=== PATIENT | male | born 1965 | race American Indian/Alaskan Native ===

== ENCOUNTER 2018-11-25 21:30 | Emergency (ER) | payer OTHER ==
--- NOTE | 2018-11-25 21:43 | Emergency Department Report ---
Blank Doc - Documentation Documentation: This is a 53-year-old male that presents with right leg tingling and numbness sensation. Patient stated started with lumbar spine and radiates to lower ext. Denies any calf pain. This initial assessment/diagnostic orders/clinical plan/treatment(s) is/are subject to change based on patient's health status, clinical progression and re- assessment by fellow clinical providers in the ED. Further treatment and workup at subsequent clinical providers discretion. Patient/guardians urged not to elope from the ED as their condition may be serious if not clinically assessed and managed. Initial orders include: 1- Patient sent to [facility] for further evaluation and treatment 2- lumbar xray
[2018-11-25 21:45] VITALS: BP 143/71
--- NOTE | 2018-11-25 22:53 | XRay Report ---
PROCEDURE: XR SPINE LUMBOSACRAL 2-3V TECHNIQUE: Frontal and lateral views lumbar spine HISTORY: lumbar spine pain COMPARISONS: None FINDINGS: There is grade 1 anterolisthesis of L4 on L5 that appears to be secondary to degenerative facet simms e at this level. The vertebral heights are maintained. There is loss of height of the L4-L5 and L5-S1 discs. The paraspinous soft tissues are unremarkable. IMPRESSION: 1. Spondylitic change lower lumbar spine with grade 1 anterolisthesis L4 on L5 and degenerative disc change L4-L5 and L5-S1 levels.. MRI lumbar spine may be helpful for further evaluation. This document is electronically signed by Marlen Lu MD., November 25 2018 10:51:38 PM ET
== END 2018-11-26 02:30 | disposition left against medical advice (07) ==
LOC: ED 21:30
DX: R20.0 Anesthesia of skin (principal); Z53.21 Procedure and treatment not carried out due to patient leaving prior to being seen by health care provider
CPT/HCPCS: 72100

== ENCOUNTER 2018-11-30 09:06 | Emergency (ER) | payer OTHER ==
[2018-11-30 09:13] VITALS: BP 114/72
--- NOTE | 2018-11-30 09:25 | Emergency Department Report ---
ED Dysuria HPI - HPI Chief Complaint: Abdominal Pain Stated Complaint: STOMACH CRAMPS Time Seen by Provider: 11/30/18 09:25 Duration: 2 Days Severity: Mild Symptoms: Dysuria: Yes, Frequency: No, Suprapubic Pain: No, Flank Pain: No, Fever: No, Hematuria: No, Abdominal Pain: No, Previous UTI's: No Other History: Patient is a 53-year-old male comes to the ER today with his partner for complaints of dysuria. He states that his partner was recently diagnosed with trich. He is here for treatment for his STI. Pt denies n/v/d or abd pain. pmh. none. psh. hand. rx. none ED Review of Systems ROS: Stated complaint: STOMACH CRAMPS Other details as noted in HPI Comment: All other systems reviewed and negative Constitutional: denies: chills Eyes: denies: eye pain Respiratory: denies: cough Cardiovascular: denies: dyspnea on exertion Endocrine: denies: intolerance to cold Gastrointestinal: denies: nausea Genitourinary: as per HPI, dysuria Musculoskeletal: denies: back pain Skin: denies: rash Neurological: denies: weakness Psychiatric: denies: anxiety Hematological/Lymphatic: denies: easy bleeding ED Past Medical Hx - Past Medical History Previous Medical History?: No Additional medical history: siatica - Surgical History Past Surgical History?: Yes Additional Surgical History: right hand surgery - Family History Family history: no significant - Social History Smoking Status: Current Every Day Smoker Substance Use Type: None - Medications Home Medications: Home Medications Medication Instructions Recorded Confirmed Last Taken Type Azithromycin [Zithromax TAB] 1,000 mg PO ONCE #2 tablet 11/30/18 Unknown Rx metroNIDAZOLE [Flagyl] 500 mg PO ONCE #4 tab 11/30/18 Unknown Rx Dysuria Exam - Exam General: Vital signs noted. No distress. Alert and acting appropriately. Exam: Yes Moist Mucous Membranes, No CVA Tenderness, No Abdominal Tenderness, No Rigidity or Guarding ED Course Vital Signs 11/30/18 09:10 Temperature 98.0 F Pulse Rate 73 Respiratory 16 Rate Blood Pressure 114/72 O2 Sat by Pulse 99 Oximetry ED Medical Decision Making - Medical Decision Making ua and gc pending will empirically treat given partner having STI and symptoms rocephin IM here in ED and flagyl and azithrom Rx provided dc home with discharge plan of care educated pt on plan of care and need to take his medications Vital Signs 11/30/18 11/30/18 09:10 09:23 Temperature 98.0 F Pulse Rate 73 Respiratory 16 16 Rate Blood Pressure 114/72 O2 Sat by Pulse 99 Oximetry Critical care attestation.: If time is entered above; I have spent that time in minutes in the direct care of this critically ill patient, excluding procedure time. ED Disposition Clinical Impression: STI (sexually transmitted infection) Disposition: TO HOME OR SELFCARE Is pt being admited?: No Does the pt Need Aspirin: No Condition: Stable Instructions: Sexually Transmitted Diseases (ED), Safe Sex (ED) Prescriptions: metroNIDAZOLE [Flagyl] 500 mg PO ONCE #4 tab Azithromycin [Zithromax TAB] 1,000 mg PO ONCE #2 tablet Referrals: CARLEE MCINTOSH MD [Primary Care Provider] - 3-5 Days Time of Disposition: 09:29
[2018-11-30] MEDS ORDERED: XYLOCAINE 1% MPF 5 mL INFILTRATI ONE (09:31)
[2018-11-30] MEDS ORDERED: ROCEPHIN IM ONE (09:31)
[2018-11-30 10:23] LABS: Bilirubin,Urine NEG (Negative); Blood,Urine NEG (Negative); Color,Urine Amber (Yellow); Mucus,Urine 3+ /HPF
== END 2018-11-30 09:57 | disposition home or self-care (01) ==
LOC: ED 09:06
DX: A64 Unspecified sexually transmitted disease (principal); F17.200 Nicotine dependence, unspecified, uncomplicated
CPT/HCPCS: 81001; 87591; 96372; 99283; J0696

== ENCOUNTER 2019-03-11 12:43 | Emergency (ER) | payer OTHER ==
[2019-03-11 13:02] VITALS: BP 132/75
--- NOTE | 2019-03-11 13:03 | Event Note ---
ED Screening Note ED Screening Note: pt states that he had dizziness and light-headedness that began earlier today states it felt like the room was spinning worse with head movements and bending over states it occurred while at work and states it was hot + left buddhism CASH no vision changes no numbness or unilateral weakness PMHx HTN he states he does not take his BP medicine +tobacco non drinker no drug use This initial assessment/diagnostic orders/clinical plan/treatment(s) is/are subject to change based on patients health status, clinical progression and re- assessment by fellow clinical providers in the ED. Further treatment and workup at subsequent clinical providers discretion. Patient/guardian urged not to elope from the ED as their condition may be serious if not clinically assessed and managed. Initial orders include: labs
[2019-03-11 13:49] LABS: Basophils # (Auto) 0.1 K/mm3 (0.0-0.1); Eosinophils # (Auto) 0.1 K/mm3 (0.0-0.4); Eosinophils % (Auto) 0.9 % (0.0-4.3); Hematocrit 45.2 % (35.5-45.6); Hemoglobin 15.4 gm/dl (11.8-15.2); Lymphocytes # (Auto) 2.7 K/mm3 (1.2-5.4); Lymphocytes % (Auto) 26.8 % (13.4-35.0); Mean Corpuscular HGB Conc 34 % (32-34); Mean Corpuscular Volume 93 fl (84-94); Monocytes # (Auto) 0.7 K/mm3 (0.0-0.8); Monocytes % (Auto) 7.4 % (0.0-7.3); Platelet Count 141 K/mm3 (140-440); Red Blood Count 4.88 M/mm3 (3.65-5.03); Red Cell Distribution Width 13.7 % (13.2-15.2)
[2019-03-11] MEDS ORDERED: ANTIVERT PO ONE (14:07)
--- NOTE | 2019-03-11 14:19 | Cat Scan Report ---
CT HEAD WITHOUT CONTRAST INDICATION : dizziness. Headache and blurry vision for one day. TECHNIQUE: Axial imaging performed from the skull apex through the skull base without the use of con trast. All CT scans at this location are performed using CT dose reduction for ALARA by means of aut omated exposure control. COMPARISON: None FINDINGS: Parenchyma: No acute intracranial hemorrhage or parenchymal abnormality. Ventricles: Ventricles are normal in size and appear symmetric. Soft tissues: Soft tissues including the orbits appear normal. Bones: No acute osseous abnormality. Sinuses: Sinuses and mastoid air cells are clear. IMPRESSION: No acute abnormality. Signer Name: Apollo Bueno Jr, MD Signed: 03/11/2019 2:14 PM Workstation Name: [id number]
[2019-03-11 14:21] LABS: Alanine Aminotransferase 12 units/L (7-56); Albumin 4.2 g/dL (3.9-5); BUN/Creatinine Ratio 9; Blood Urea Nitrogen 9 mg/dL (9-20); Calcium 9.4 mg/dL (8.4-10.2); Hemolysis Index 75
--- NOTE | 2019-03-11 14:26 | Emergency Department Report ---
ED General Adult HPI - General Chief complaint: High BP Stated complaint: BLOOD PRESSURE HIGH Time Seen by Provider: 03/11/19 13:00 Source: patient Mode of arrival: Ambulatory Limitations: No Limitations - History of Present Illness Initial comments: THE patient presents to the emergency department with a chief complaint of dizziness. Patient states that his dizziness started yesterday and describes it as the room is spinning. Patient does endorse recently having a head cold. Patient not a headache, shortness of breath, chest pain, weakness, blurred vision, slurred speech. -: Sudden Severity scale (0 -10): 0 Improves with: rest Worsens with: movement Associated Symptoms: denies other symptoms Treatments Prior to Arrival: none - Related Data Previous Rx's Medication Instructions Recorded Last Taken Type Azithromycin [Zithromax TAB] 1,000 mg PO ONCE #2 tablet 11/30/18 Unknown Rx metroNIDAZOLE [Flagyl] 500 mg PO ONCE #4 tab 11/30/18 Unknown Rx Meclizine [Antivert] 25 mg PO TID PRN #30 tablet 03/11/19 Unknown Rx Allergies Allergy/AdvReac Type Severity Reaction Status Date / Time ibuprofen AdvReac Vomiting Verified 03/11/19 12:44 ED Review of Systems ROS: Stated complaint: BLOOD PRESSURE HIGH Other details as noted in HPI Comment: All other systems reviewed and negative Constitutional: denies: chills, fever Eyes: denies: eye pain, eye discharge, vision change ENT: denies: ear pain, throat pain Respiratory: denies: cough, shortness of breath, wheezing Cardiovascular: denies: chest pain, palpitations Endocrine: no symptoms reported Gastrointestinal: denies: abdominal pain, nausea, diarrhea Genitourinary: denies: urgency, dysuria Musculoskeletal: denies: back pain, joint swelling, arthralgia Skin: denies: rash, lesions Neurological: denies: headache, weakness, paresthesias Psychiatric: denies: anxiety, depression Hematological/Lymphatic: denies: easy bleeding, easy bruising ED Past Medical Hx - Past Medical History Previous Medical History?: Yes Hx Hypertension: Yes Additional medical history: siatica - Surgical History Past Surgical History?: Yes Additional Surgical History: right hand surgery - Social History Smoking Status: Current Every Day Smoker Substance Use Type: None - Medications Home Medications: Home Medications Medication Instructions Recorded Confirmed Last Taken Type Azithromycin [Zithromax TAB] 1,000 mg PO ONCE #2 tablet 11/30/18 Unknown Rx metroNIDAZOLE [Flagyl] 500 mg PO ONCE #4 tab 11/30/18 Unknown Rx Meclizine [Antivert] 25 mg PO TID PRN #30 tablet 03/11/19 Unknown Rx ED Physical Exam - General Limitations: No Limitations General appearance: alert, in no apparent distress - Head Head exam: Present: atraumatic, normocephalic - Eye Eye exam: Present: normal appearance, PERRL, EOMI - ENT ENT exam: Present: mucous membranes moist - Neck Neck exam: Present: normal inspection - Respiratory Respiratory exam: Present: normal lung sounds bilaterally. Absent: respiratory distress - Cardiovascular Cardiovascular Exam: Present: regular rate, normal rhythm. Absent: systolic murmur, diastolic murmur, rubs, gallop - GI/Abdominal GI/Abdominal exam: Present: soft, normal bowel sounds. Absent: distended, tenderness - Rectal Rectal exam: Present: deferred - Extremities Exam Extremities exam: Present: normal inspection - Back Exam Back exam: Present: normal inspection - Neurological Exam Neurological exam: Present: alert, oriented X3, CN II-XII intact, other (symptoms retreated around the head and eye movement ). Absent: motor sensory deficit - Psychiatric Psychiatric exam: Present: normal affect, normal mood - Skin Skin exam: Present: warm, dry, intact, normal color. Absent: rash ED Course Vital Signs 03/11/19 13:00 Temperature 98.6 F Pulse Rate 63 Respiratory 16 Rate Blood Pressure 132/75 [Right] O2 Sat by Pulse 97 Oximetry ED Medical Decision Making - Lab Data Result diagrams: 03/11/19 13:35 03/11/19 13:35 Lab Results 03/11/19 03/11/19 Range/Units 13:35 13:35 WBC 10.1 (4.5-11.0) K/mm3 RBC 4.88 (3.65-5.03) M/mm3 Hgb 15.4 H (11.8-15.2) gm/dl Hct 45.2 (35.5-45.6) % MCV 93 (84-94) fl MCH 32 (28-32) pg MCHC 34 (32-34) % RDW 13.7 (13.2-15.2) % Plt Count 141 (140-440) K/mm3 Lymph % (Auto) 26.8 (13.4-35.0) % [place] % (Auto) 7.4 H (0.0-7.3) % Eos % (Auto) 0.9 (0.0-4.3) % Baso % (Auto) 1.0 (0.0-1.8) % Lymph # 2.7 (1.2-5.4) K/mm3 [place] # 0.7 (0.0-0.8) K/mm3 Eos # 0.1 (0.0-0.4) K/mm3 Baso # 0.1 (0.0-0.1) K/mm3 Seg Neutrophils % 63.9 (40.0-70.0) % Seg Neutrophils # 6.4 (1.8-7.7) K/mm3 Sodium 141 (137-145) mmol/L Potassium 4.5 (3.6-5.0) mmol/L Chloride 104.9 (98-107) mmol/L Carbon Dioxide 27 (22-30) mmol/L Anion Gap 14 mmol/L BUN 9 (9-20) mg/dL Creatinine 1.0 (0.8-1.5) mg/dL Estimated GFR > 60 ml/min BUN/Creatinine Ratio 9 % Glucose 103 H (75-100) mg/dL Calcium 9.4 (8.4-10.2) mg/dL Phosphorus 3.30 (2.5-4.5) mg/dL Magnesium 2.30 (1.7-2.3) mg/dL Total Bilirubin 0.50 (0.1-1.2) mg/dL AST 32 (5-40) units/L ALT 12 (7-56) units/L Alkaline Phosphatase 101 (35-129) units/L Total Protein 6.7 (6.3-8.2) g/dL Albumin 4.2 (3.9-5) g/dL Albumin/Globulin Ratio 1.7 % - Radiology Data Radiology results: report reviewed - Medical Decision Making symptoms improved with medication Discussed results with patient Critical care attestation.: If time is entered above; I have spent that time in minutes in the direct care of this critically ill patient, excluding procedure time. ED Disposition Clinical Impression: Vertigo Disposition: DC-01 TO HOME OR SELFCARE Is pt being admited?: No Does the pt Need Aspirin: No Condition: Stable Instructions: Vertigo (ED) Additional Instructions: return if worse Referrals: CARLEE MCINTOSH MD [Primary Care Provider] - 3-5 Days [facility] [Provider Group] - 3-5 Days [facility] [Provider Group] - 3-5 Days [facility] [Provider Group] - 3-5 Days [facility] [Outside] - 3-5 Days Time of Disposition: 15:07
== END 2019-03-11 15:14 | disposition home or self-care (01) ==
LOC: ED 12:43
DX: R42 Dizziness and giddiness (principal); I10 Essential (primary) hypertension; F17.200 Nicotine dependence, unspecified, uncomplicated; Z98.890 Other specified postprocedural states; Z88.5 Allergy status to narcotic agent
CPT/HCPCS: 36415; 70450; 80053; 83735; 84100; 85025; 93005; 93010; 99284

== ENCOUNTER 2019-10-07 08:21 | Emergency (ER) | payer SELFPAY ==
[2019-10-07] MEDS ORDERED: ASPIRIN 325 MG TAB PO ONE (08:30)
[2019-10-07 08:54] LABS: Basophils # (Auto) 0.1 K/mm3 (0.0-0.1); Basophils % (Auto) 0.7 % (0.0-1.8); Eosinophils # (Auto) 0.1 K/mm3 (0.0-0.4); Eosinophils % (Auto) 0.5 % (0.0-4.3); Hematocrit 46.3 % (35.5-45.6); Hemoglobin 15.3 gm/dl (11.8-15.2); Lymphocytes # (Auto) 2.4 K/mm3 (1.2-5.4); Lymphocytes % (Auto) 20.9 % (13.4-35.0); Mean Corpuscular HGB Conc 33 % (32-34); Mean Corpuscular Volume 93 fl (84-94); Monocytes # (Auto) 0.8 K/mm3 (0.0-0.8); Monocytes % (Auto) 6.8 % (0.0-7.3); Platelet Count 170 K/mm3 (140-440); Red Blood Count 4.98 M/mm3 (3.65-5.03); Red Cell Distribution Width 14.4 % (13.2-15.2)
--- NOTE | 2019-10-07 09:15 | XRay Report ---
CHEST 2 VIEWS INDICATION / CLINICAL INFORMATION: Chest Pain. COMPARISON: None available. FINDINGS: SUPPORT DEVICES: None. HEART / MEDIASTINUM: No significant abnormality. LUNGS / PLEURA: No significant pulmonary or pleural abnormality. No pneumothorax. ADDITIONAL FINDINGS: No significant additional findings. IMPRESSION: 1. No acute findings. Signer Name: Yaw Chacon MD Signed: 10/07/2019 9:10 AM Workstation Name: [id number]
[2019-10-07 09:26] LABS: BUN/Creatinine Ratio 12; Blood Urea Nitrogen 12 mg/dL (9-20); Calcium 9.1 mg/dL (8.4-10.2); Hemolysis Index 11
--- NOTE | 2019-10-07 10:25 | Emergency Department Report ---
ED Chest Pain HPI - General Chief Complaint: Chest Pain Stated Complaint: CHEST AND BACK PAIN Time Seen by Provider: 10/07/19 10:13 Source: patient Mode of arrival: Ambulatory Limitations: No Limitations - History of Present Illness Initial Comments: 54-year-old -[place] male smoker presents emergency department complaining of a few day history of episodic chest pain with occasional cough. Reports no fever, chills, sweats, persistent hematemesis or hematochezia. No palpitations.. Reports no nausea or vomiting does report doing a lot of heavy lifting at work and after work session about a week ago began having some stiffness and irritation to his right neck pain gets worse with axial rotation of the neck and shoulder shoulders No presyncope MD Complaint: chest pain -: Gradual Pain Location: substernal, left chest Pain Radiation: none Severity: mild, moderate Quality: aching, sharp Consistency: constant Improves With: nothing Worsens With: nothing Treatments Prior to Arrival: none - Related Data Previous Rx's Medication Instructions Recorded Last Taken Type Azithromycin [Zithromax TAB] 1,000 mg PO ONCE #2 tablet 11/30/18 Unknown Rx metroNIDAZOLE [Flagyl] 500 mg PO ONCE #4 tab 11/30/18 Unknown Rx Meclizine [Antivert] 25 mg PO TID PRN #30 tablet 03/11/19 Unknown Rx Allergies Allergy/AdvReac Type Severity Reaction Status Date / Time ibuprofen AdvReac Vomiting Verified 10/07/19 08:26 Heart Score - HEART Score History: Slightly suspicious EKG: Non-specific Age: 45-65 Risk factors: 1-2 risk factors Troponin: < normal limit HEART Score: 3 ED Review of Systems ROS: Stated complaint: CHEST AND BACK PAIN Other details as noted in HPI Comment: All other systems reviewed and negative ED Past Medical Hx - Past Medical History Hx Hypertension: Yes Additional medical history: siatica - Surgical History Additional Surgical History: right hand surgery - Social History Smoking Status: Current Every Day Smoker Substance Use Type: None - Medications Home Medications: Home Medications Medication Instructions Recorded Confirmed Last Taken Type Azithromycin [Zithromax TAB] 1,000 mg PO ONCE #2 tablet 11/30/18 Unknown Rx metroNIDAZOLE [Flagyl] 500 mg PO ONCE #4 tab 11/30/18 Unknown Rx Meclizine [Antivert] 25 mg PO TID PRN #30 tablet 03/11/19 Unknown Rx ED Physical Exam - General Limitations: No Limitations General appearance: alert, in no apparent distress - Head Head exam: Present: atraumatic, normocephalic - Eye Eye exam: Present: normal appearance, PERRL, EOMI Pupils: Present: normal accommodation - ENT ENT exam: Present: mucous membranes moist, other (severe dental erosion with several missing dentition) - Neck Neck exam: Present: normal inspection, thyromegaly, other (tenderness to the right trapezius region. Full range of motion Spurling's test is none as negative. No bruits noted) - Respiratory Respiratory exam: Present: normal lung sounds bilaterally. Absent: respiratory distress - Cardiovascular Cardiovascular Exam: Present: regular rate, normal rhythm. Absent: systolic murmur, diastolic murmur, rubs, gallop - GI/Abdominal GI/Abdominal exam: Present: soft, normal bowel sounds - Rectal Rectal exam: Present: deferred - Extremities Exam Extremities exam: Present: normal inspection - Back Exam Back exam: Present: normal inspection - Neurological Exam Neurological exam: Present: alert, oriented X3 - Psychiatric Psychiatric exam: Present: normal affect, normal mood - Skin Skin exam: Present: warm, dry, intact, normal color. Absent: rash ED Course Vital Signs 10/07/19 10/07/19 08:24 10:45 Temperature 97.6 F 98.2 F Pulse Rate 62 89 Respiratory 18 16 Rate Blood Pressure 136/78 Blood Pressure 141/71 [Right] O2 Sat by Pulse 96 100 Oximetry LESLY score - Lesly Score Age > 65: (0) No Aspirin use within the Past 7 Days: (0) No 3 or more CAD Risk Factors: (0) No 2 or more Angina events in past 24 hrs: (0) No Known CAD with more than 50% Stenosis: (0) No Elevated Cardiac Markers: (0) No ST Deviation Greater than 0.5mm: (0) No LESLY Score: 0 ED Medical Decision Making - Lab Data Result diagrams: 10/07/19 08:40 10/07/19 08:40 - Radiology Data Radiology results: report reviewed No acute process on chest x-ray(unable to cut and paste the reading due to the x-ray crossover system being down) - Medical Decision Making The patient presented with chest pain of uncertain etiology. Based on their history, lab analysis, EKG (which showed no evidence of ischemia or infarction), and imaging, in addition to the patient's physical exam, I see no evidence at this time for a malignant etiology for the patient's chest pain. There is no acute evidence for pulmonary embolus, acute myocardial infarction, pneumothorax, esophageal rupture, cardiac tamponade, thoracic artery dissection, or any other emergent cardiac, pulmonary or aortic pathology at this time. [Based on the nature and long duration of the patient's pain, paucity of EKG findings, and normal cardiac enzymatic blood analysis, acute coronary syndrome is exceedingly unlikely. It is highly likely that cardiac enzymes would be abnormal in chest pain of this duration if their chest pain was attributable to ACS.] [The patient also has very low risk for coronary artery disease based on their risk factor profile with no substantial risk factors (Age>65, >3 CAD risk factors -- family history of CAD, hypertension, hypercholesterolemia, diabetes, or current smoker, known CAD as defined by >50% stenosis, aspirin use in the past 7 days, severe angina having more than 2 episodes in the past 24 hours, ST changes >0.5mm, or positive cardiac biomarker).] HEART score _0-3. This patient may require cardiac stress testing on an outpatient basis and arrangements for this may be made during their follow-up visit with their primary care physician. The patient understands that at this time there is no evidence for a more malignant underlying process, but the patient also understands that early in the process of an illness, an emergency department workup can be falsely reassuring. Routine discharge counseling was given to the patient and the patient understands that worsening, changing, or persistent symptoms should prompt an immediate call or follow up with their primary physician or the emergency department immediately. The importance of close follow up was also discussed with the patient. Critical care attestation.: If time is entered above; I have spent that time in minutes in the direct care of this critically ill patient, excluding procedure time. ED Disposition Clinical Impression: Chest pain, Neck muscle spasm Disposition: DC-01 TO HOME OR SELFCARE Is pt being admited?: No Does the pt Need Aspirin: No Condition: Stable Instructions: Chest Pain (ED), Costochondritis (ED) Referrals: PRIMARY CARE, [Primary Care Provider] - 3-5 Days TRAN SHEPARD MD [Staff Physician] - 3-5 Days GIA SILVA MD [Staff Physician] - 3-5 Days Forms: Work/School Release Form(ED)
[2019-10-07 10:47] VITALS: BP 141/71
[2019-10-07] MEDS ORDERED: ACETAMINOPHEN 325 MG TAB ONE (10:55)
[2019-10-07] MEDS ORDERED: ASPIRIN 325 MG TAB ONE (11:08)
== END 2019-10-07 16:37 | disposition home or self-care (01) ==
LOC: ED 08:21
DX: M62.838 Other muscle spasm (principal); R07.89 Other chest pain; I10 Essential (primary) hypertension; F17.200 Nicotine dependence, unspecified, uncomplicated; Z98.890 Other specified postprocedural states; Z79.899 Other long term (current) drug therapy; Z88.6 Allergy status to analgesic agent
CPT/HCPCS: 36415; 71046; 80048; 84484; 85025; 93005; 93010

== ENCOUNTER 2019-10-12 16:17 | Emergency (ER) | payer SELFPAY ==
[2019-10-12 16:27] VITALS: BP 137/70
--- NOTE | 2019-10-12 18:28 | Emergency Department Report ---
Chief Complaint: Medical Clearance Stated Complaint: POISONING Time Seen by Provider: 10/12/19 18:20 - HPI History of Present Illness: 54 male comes in nausea and vomiting . Patient vomited time 1. - Exam Vital Signs: Vital Signs 10/12/19 16:21 Temperature 98.7 F Pulse Rate 76 Respiratory 16 Rate Blood Pressure 137/70 O2 Sat by Pulse 96 Oximetry Physical Exam: General Limitations: No Limitations General appearance: alert, in no apparent distress - Head Head exam: Present: atraumatic, normocephalic - Eye Eye exam: Present: normal appearance - Neurological Exam Neurological exam: Present: alert, oriented X3. Absent: motor sensory deficit - Psychiatric Psychiatric exam: Present: normal affect, normal mood - Skin Skin exam: warm, dry, intact MSE screening note: Focused history and physical exam performed. Due to findings the following was ordered: 54 male comes in nausea and vomiting . Patient vomited time 1. Patient states he will followed with Dr. Edwards ED Disposition for MSE Condition: Stable
== END 2019-10-12 18:45 | disposition left against medical advice (07) ==
LOC: ED 16:17
DX: R11.2 Nausea with vomiting, unspecified (principal); Z88.6 Allergy status to analgesic agent
CPT/HCPCS: 99281

== ENCOUNTER 2019-10-17 23:16 | Emergency (ER) | payer SELFPAY ==
[2019-10-17 23:50] VITALS: BP 118/73
--- NOTE | 2019-10-18 02:00 | Emergency Department Report ---
Chief Complaint: Dental/Oral Stated Complaint: HEADACHE/BROKEN TOOTH/FACIAL SWELLING Time Seen by Provider: 10/18/19 01:48 - HPI History of Present Illness: 54-year-old -[place] male presents to the emergency room for 1 week of broken tooth. Patient has taken nothing for pain. Patient states that it is giving him a headache. - Exam Vital Signs: Vital Signs 10/17/19 23:19 Temperature 98.7 F Pulse Rate 76 Respiratory 18 Rate Blood Pressure 118/73 O2 Sat by Pulse 98 Oximetry Physical Exam: Patient is alert and oriented x3 no acute distress Oral multiple decayed teeth top and bottom no gingiva and enlargement no jaw swelling no abscess appreciated MSE screening note: Focused history and physical exam performed. Due to findings the following was ordered: 54-year-old -[place] male presents to the emergency room for 1 week of broken tooth. Patient has taken nothing for pain. Patient states that it is giving him a headache. Discussed with patient that it is imperative that he follows up with a dentist. I do not appreciate any abscess or gingival enlargement. Patient just has multiple decayed teeth. ED Disposition for MSE Clinical Impression: Teeth decayed, Caries involving multiple surfaces of tooth Disposition: Z-07 MED SCREENING EXAM-LEFT Is pt being admited?: No Does the pt Need Aspirin: No Condition: Stable Instructions: Dental Caries (ED) Additional Instructions: Recommend patient to take [id number] Tylenol and or ibuprofen and Aleve. Patient needs to follow-up with a dentist. Referrals: PRIMARY CARE, [Primary Care Provider] - 3-5 Days
== END 2019-10-18 02:30 | disposition left against medical advice (07) ==
LOC: ED 23:16
DX: K08.89 Other specified disorders of teeth and supporting structures (principal); Z53.21 Procedure and treatment not carried out due to patient leaving prior to being seen by health care provider

== ENCOUNTER 2021-05-30 09:04 | Emergency (ER) | payer SELFPAY | END 2021-05-30 09:52 | disposition left against medical advice (07) | LOC: ED 09:04 | DX: R39.81 Functional urinary incontinence (principal); Z53.21 Procedure and treatment not carried out due to patient leaving prior to being seen by health care provider ==